=== PATIENT | male | born 2000 | race Caucasian/White ===

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

== ENCOUNTER 2021-08-28 16:40 | Emergency (ER) | payer BC, SELFPAY ==
[2021-08-28 16:58] VITALS: BP 141/71; PULSE 72; RESP 16; TEMP 36.6; O2SAT 100
--- NOTE | 2021-08-28 18:15 | ED.GENADULT ---
HPI - General Adult General Chief complaint: Skin/Abscess/Foreign Body <Verito Beebe PA-C - Last Filed: 08/28/21 18:27> Stated complaint: Acne <DYLAN Valentino Last Filed: 08/28/21 18:27> Time Seen by Provider: 08/28/21 17:32 <DYLAN Valentino Last Filed: 08/28/21 18:27> Source: patient <DYLAN Valentino Last Filed: 08/28/21 18:27> Mode of arrival: ambulatory <DYLAN Valentino Last Filed: 08/28/21 18:27> Limitations: no limitations <DYLAN Valentino Filed: 08/28/21 18:27> History of Present Illness HPI narrative: Patient is 21-year-old female with chief complaint of pain, swelling and drainage to a few of his cystic acne areas. Patient reports that he has been on Accutane for 2 months. He reports that a lot of his cystic acne areas are drying but a few spots one on his left and one on his lower left abdomen have become tender and open with some drainage. Patient reports that he has an appointment with his telephone answering service operator on 3 days. Patient reports the areas are uncomfortable especially the area on his back. <DYLAN Valentino Last Filed: 08/28/21 18:27> Related Data Allergies/adverse reactions: Allergies Allergy/AdvReac Type Severity Reaction Status Date / Time No Known Allergies Allergy Unknown Verified 05/26/21 14:55 <Verito Beebe PA-C - Last Filed: 08/28/21 18:27> Review of Systems Review of Systems: CONSTITUTIONAL: Denies fever, chills, or sweats. EYES: Denies visual changes, redness, or discharge. ENT: Denies rhinorrhea, congestion, sore throat, or otalgia. CARDIOVASCULAR: Denies chest pain, palpitations, or edema. RESPIRATORY: Denies cough or dyspnea. GASTROINTESTINAL: Denies abdominal pain, nausea, vomiting, or diarrhea. GENITOURINARY: Denies dysuria or hematuria. SKIN: Reports rash or itching. MUSCULOSKELETAL: Denies back pain, joint pain, or myalgia. NEUROLOGIC: Denies headache, numbness, dizziness, or weakness. PSYCHIATRIC: Denies anxiety or depression. <Verito Beebe PA-C - Last Filed: 08/28/21 18:27> PMFSH Past Medical History Medical History: Medical History Acne Healthy adult <Verito Beebe PA-C - Last Filed: 08/28/21 18:27> Surgical History Surgical History: Surgical History No pertinent past surgical history <Verito Beebe PA-C - Last Filed: 08/28/21 18:27> Family History Family History: Family History Father Diabetes mellitus Hypertension Mother Hypertension <Verito Beebe PA-C - Last Filed: 08/28/21 18:27> Social History Social History: Social History Smoking status: Light tobacco smoker Second hand tobacco smoke exposure: No Alcohol intake: never Gender identity (if verbalized by the patient): Male <Verito Beebe PA-C - Last Filed: 08/28/21 18:27> Exam Narrative: GENERAL: Well-appearing, well-nourished, and in no acute distress. HEAD: Normocephalic, atraumatic. EYES: PERRLA and EOMI. CHEST: Clear to auscultation. No respiratory distress. No wheezes rales or rhonchi HEART: Regular rate and rhythm. EXTREMITIES: Normal range of motion. No edema. SKIN: Cystic acne active and scarring is noted to patient anterior thoracic area and thighs. There is an open area to the lower left abdomen with slight drainage and surrounding erythema similar area noted to left anterior thigh. There is not streaking.No sign of closed abscess presently. NEURO: No focal deficits. Alert and oriented x3. PSYCH: Normal mood and affect. <Verito Beebe PA-C - Last Filed: 08/28/21 18:27> Course JUKEBOX ROUTE DRIVER/PA Physician Supervision For this patient encounter, I reviewed the JUKEBOX ROUTE DRIVER or PA documentation, treatment plan, and medical decision making. <Nabor
== END 2021-08-28 19:24 | disposition home or self-care (01) ==
PROVIDERS: Emergency Provider Emergency Medicine; PCP Family Medicine
DX: L70.0 Acne vulgaris (principal); L03.90 Cellulitis, unspecified; F17.200 Nicotine dependence, unspecified, uncomplicated
CPT/HCPCS: 99283

== ENCOUNTER 2022-02-28 06:59 | Emergency (ER) | payer OTHER, SELFPAY ==
[2022-02-28 07:11] VITALS: BP 147/91; PULSE 106; RESP 18; TEMP 36.8; O2SAT 98
--- NOTE | 2022-02-28 07:47 | ED.GENADULT ---
HPI - General Adult General Chief complaint: Alcohol Stated complaint: wants to stop drinking Time Seen by Provider: 02/28/22 07:16 History of Present Illness HPI narrative: 21-year-old male with history of alcohol abuse presented to the emergency department for evaluation and for help stopping his drinking. Patient states he does drink every day. He states he drinks approximately a pint to 2 pints of alcohol a day. Patient states last time he was sober for a great of the day was about 6 months ago. Patient states he did drink last night. Patient states when he decreases his alcohol consumption he does get night sweats with associated nausea and vomiting. Patient denies any seizure activity when he quits drinking. Related Data Allergies Allergy/AdvReac Type Severity Reaction Status Date / Time prednisone Allergy Hallucinati Verified 02/28/22 07:10 ng Review of Systems Review of Systems: CONSTITUTIONAL: Denies fever, chills, or sweats. EYES: Denies visual changes, redness, or discharge. ENT: Denies rhinorrhea, congestion, sore throat, or otalgia. CARDIOVASCULAR: Denies chest pain, palpitations, or edema. RESPIRATORY: Denies cough or dyspnea. GASTROINTESTINAL: See HPI GENITOURINARY: Denies dysuria or hematuria. SKIN: Denies rash or itching. MUSCULOSKELETAL: Denies back pain, joint pain, or myalgia. NEUROLOGIC: Denies headache, numbness, or weakness. PMFSH Past Medical History Medical History Acne Healthy adult Heat stroke Surgical History Surgical History No pertinent past surgical history Family History Family History Father Diabetes mellitus Hypertension Mother Hypertension Social History Social History Smoking status: Current every day smoker Second hand tobacco smoke exposure: No Alcohol intake: never Gender identity (if verbalized by the patient): Male Exam Narrative: APPEARANCE: Well appearing, no pain, no distress, well-nourished. HEAD: normocephalic, atraumatic. EYES: PERRLA/EOMI, conjunctivae clear. NOSE: Normal no drainage NECK: Supple. No adenopathy, no masses. RESPIRATORY: Airway patent, respirations nonlabored. Clear to auscultation bilaterally, no rales, rhonchi, wheezing. CARDIOVASCULAR: Regular rate and rhythm without murmurs rubs or gallops. ABDOMINAL: Soft, nontender, nondistended, normal bowel sounds MUSCULOSKELETAL: Moves all extremities. Strength/ROM intact, No edema, No calf tenderness. NEURO: Alert. Cranial nerves II through XII intact. Grossly intact. Alert and oriented no tremor at baseline. SKIN: Warm, dry. Normal Color PSYCHIATRIC: Normal affect/mood. Course Course Emergency Course: Patient was provided information for outpatient rehab. At time of discharge patient was well-appearing stated he feels improved. Patient had no evidence of tremor and discharge. Patient was encouraged to return to the emergency department if he had any worsening symptoms. All questions and concerns were addressed. Urine culture is pending Vital Signs Vital signs: Vital Signs Temperature 98.2 F 02/28/22 07:11 Pulse Rate 106 H 02/28/22 07:11 Respiratory Rate 18 02/28/22 07:11 Blood Pressure 147/91 H 02/28/22 07:11 Pulse Oximetry 98 02/28/22 07:11 Oxygen Delivery Room Air 02/28/22 07:11 Temperature 98.2 F 02/28/22 07:11 Pulse Rate 86 02/28/22 11:12 Respiratory Rate 20 02/28/22 11:12 Blood Pressure 154/85 H 02/28/22 11:12 Pulse Oximetry 99 02/28/22 11:12 Oxygen Delivery Room Air 02/28/22 07:11 Medical Decision Making Vital Signs Vital Signs: Vital Signs Temperature 98.2 F 02/28/22 07:11 Pulse Rate 106 H 02/28/22 07:11 Respiratory Rate 18 02/28/22 07:11 Blood Pressure 147/91 H 02/28/22 07:11 Pulse Oxim
[2022-02-28] MEDS: ONDANSETRON INJ 4 MG/2 ML VIAL IV PUSH (08:03)
[2022-02-28] MEDS: SODIUM CHLORIDE 0.9% IV 1,000 ML 999 ML IV CONT ×2 (08:03→08:28)
[2022-02-28] MEDS: LORazepam INJ (*CRX) 2 MG/ML VIAL 1 MG IV PUSH (08:04)
[2022-02-28 08:05] LABS: Appearance Urine Clear (Clear); Bilirubin Urine 2+ (Negative); Glucose Urine UA Negative (Negative); Ketones Urine Trace mg/dL (Negative); Leukocyte Esterase Ur Negative LEU/UL (Negative); Nitrate Urine Negative (Negative); Protein Urine 2+ mg/dL (Negative); Specific Grav Ur 1.025 (1.001-1.035); pH Urine 6.5 (5.0-9.0)
[2022-02-28 08:05] LABS: Basophils Absolute Auto 0.1 K/mm3 (0.0-0.1); Eosinophils Percent Auto 0.3 % (0-4.4); Hematocrit 41.2 % (42.0-52.0); Hemoglobin 13.8 g/dL (14.0-18.0); Immature Granulocyte Absolute 0.03 K/mm3 (0.00-0.031); Immature Granulocyte Percent A 0.4 % (0-0.5); Lymphocytes Percent Auto 45.5 % (18.3-44.2); Mean Corpuscular HGB Conc 33.5 g/dl (32-36); Mean Corpuscular Hemoglobin 27.2 pg (26-34); Mean Corpuscular Volume 81.1 fl (80-100); Mean Platelet Volume 9.2 fl (7.4-10.4); Monocytes Absolute Auto 0.6 K/mm3 (0.1-0.6); Monocytes Percent Auto 7.2 % (2.6-8.5); Neutrophils Absolute Auto 3.6 K/mm3 (1.3-6.7); Neutrophils Percent Auto 45.6 % (45.5-73.1); Platelet Count Result 244 k/mm3 (150-375); Red Blood Count 5.08 M/mm3 (4.6-6.20); White Blood Count 7.9 K/mm3 (4.5-10.0)
[2022-02-28 08:09] LABS: Mucus Urine Heavy /lpf; Squamous Epithelial Cell Urine Rare /hpf (Few)
[2022-02-28 08:13] LABS: Add Urine Microscopic? YES; Blood Urine Trace-Intact (Negative); Color Urine Dark Yellow (Yellow)
[2022-02-28 08:14] LABS: Ethanol < 10 mg/dL (<10); Lactic Acid Reflex 1.5 mmol/L (0.7-2.0)
[2022-02-28 08:15] LABS: Alanine Aminotransferase 60 U/L (6-50); Albumin Level 3.8 g/dL (3.5-5.1); Alkaline Phosphatase 112 U/L (38-126); Anion Gap 8 mmol/L (8-16); Aspartate Amino Transferase 69 U/L (17-59); Bilirubin,Total 0.4 mg/dL (0.2-1.3); Blood Urea Nitrogen 7 mg/dL (9-20); Calcium 8.5 mg/dL (8.4-10.2); Carbon Dioxide 25 mmol/L (22-30); Chloride 101 mmol/L (98-107); Estimated CRCL calculation 159 ml/min; Estimated Glomerular Filt Rate > 60; Glucose 125 mg/dL (65-110); Potassium 3.5 mmol/L (3.4-5.0); Sodium 134 mmol/L (137-145)
[2022-02-28 08:31] VITALS: BP 142/83; PULSE 97; RESP 18; O2SAT 99
[2022-02-28 11:12] VITALS: BP 154/85; PULSE 86; RESP 20; O2SAT 99
== END 2022-02-28 12:16 | disposition home or self-care (01) ==
PROVIDERS: Emergency Provider Emergency Medicine; PCP Family Medicine
DX: F10.10 Alcohol abuse, uncomplicated (principal); Y90.0 Blood alcohol level of less than 20 mg/100 ml
CPT/HCPCS: 36415; 80053; 80307; 81001; 83605; 85025; 87086; 96361; 96374; 96375; 99284; J2060; J2405; J7030